=== PATIENT | female | born 1950 | race Caucasian/White ===

== ENCOUNTER 2023-03-10 08:13 | Outpatient (OUT) | payer MEDICARE, MEDICAID, SELFPAY ==
--- NOTE | 2023-03-10 08:37 | PM.CN ---
Consult Note: HPI Data of Consult Patient: known to practice within the last 3 years Consult date: 03/10/23 Requesting Physician: PASQUALE MARSHALL NP Primary Care Provider: Non-Staff Physician, MD Consult Narrative Narrative: Amelie is here for f/u of low back pain. She follows ortho for shoulder and hip injections. No new sensorimotor sx or new bowel or bladder issues. She states she has low back pain without radicular sx. She also has neck pain and continued numbness to bilat last 3 fingers. These are not new sx. No updated radilogy films on file. We discussed getting LS and cervical XR, she is in agreement. She does not have narcan at home. RX given today. She has not had procedures here in the past according to documentation available. She saw chiropractor yesterday and sees neurology this month. cc:: CC: PASQUALE MARSHALL NP Review of Systems ROS Status of ROS 10 or more systems reviewed and unremarkable except as noted in history and below Musculoskeletal Reports: back pain, neck pain and extremity pain Exam Constitutional Documenting provider has reviewed patient's vital signs: yes Common normals: no apparent distress, average body habitus, oriented x3, healthy appearing, alert and well nourished General appearance: cooperative, comfortable and well developed Orientation/consciousness: Yes awake, Yes oriented to person, Yes oriented to place and Yes oriented to time HENGA Common normals: normocephalic, head/scalp atraumatic, external nose normal and moist oral mucous membranes Head and scalp: normal to inspection and normocephalic Neck & C-Spine Common normals: full ROM and supple General: normal visual inspection Cervical spine: cervical ROM normal and pain with cervical ROM Respiratory Common normals: normal respiratory effort and no retractions Effort & inspection: able to speak in complete sentences Back & Pelvis Common normals: straight leg raise negative bilaterally Thoracic spine/upper back: paraspinal muscle spasm Lumbar spine/lower back: ROM limited, pain with ROM, paraspinal muscle tenderness, paraspinal muscle spasm and other soft tissue findings (positive bilat facet loading pain. kyphosis. muscle strength 4/5 bilat LE ) Extremity Common normals: normal to inspection and normal capillary refill Assessment and Plan Assessment and Plan (1) Cervical spondylosis: (2) Lumbar spondylosis: Plan cervical and lumbar spine XR ordered narcan, refill norco
== END 2023-03-10 08:14 ==
PROVIDERS: Visit Provider Nurse Practitioner
DX: M47.812 Spondylosis without myelopathy or radiculopathy, cervical region (principal); M47.816 Spondylosis without myelopathy or radiculopathy, lumbar region
CPT/HCPCS: G0463

== ENCOUNTER 2023-06-09 08:28 | Outpatient (OUT) | payer MEDICARE, MEDICAID, SELFPAY ==
--- NOTE | 2023-06-09 08:57 | PM.CN ---
Consult Note: HPI Data of Consult Patient: known to practice within the last 3 years Requesting Physician: PASQUALE MARSHALL NP Primary Care Provider: Non-Staff Physician, MD Consult Narrative Reason for consult: f/u Narrative: Amelie Saenz a pleasant 73 year old female presents to office for evaluation of chronic neck and back pain. Today patient rating pain 7/10 in neck, back, and hips. Patient currently feels her pain is well controlled by current regimen. Has an upcoming abdominal surgery for an open wound and infection. Would like to start PT after this surgery. cc:: CC: PASQUALE MARSHALL NP Review of Systems ROS Status of ROS 10 or more systems reviewed and unremarkable except as noted in history and below Gastrointestinal Reports: abdominal pain Musculoskeletal Reports: back pain, neck pain, joint pain and limited range of motion Meds Home Medications and Allergies Home Medications Medication Instructions Recorded Confirmed Type ZEMPEP 10,000 units PO TID 03/10/23 03/10/23 History allopurinol 100 mg tablet 100 mg PO DAILY 03/10/23 03/10/23 History ascorbic acid (vitamin C) 500 mg 500 mg PO .QD 03/10/23 03/10/23 History capsule calcitriol 0.5 mcg capsule 0.5 mcg PO BID 03/10/23 03/10/23 History cholecalciferol (vitamin D3) 1,250 50,000 unit PO .5 DAYS/WEEK 03/10/23 03/10/23 History mcg (50,000 unit) capsule ciprofloxacin HCl 500 mg tablet 500 mg PO QDAY 03/10/23 03/10/23 History diphenhydramine HCl 25 mg capsule 25 mg PO TID 03/10/23 03/10/23 History (Benadryl) dupilumab 300 mg/2 mL subcutaneous 300 mg subcut QWEEK 03/10/23 03/10/23 History pen injector (Dupixent) esomeprazole magnesium 40 mg 40 mg PO DAILY 03/10/23 03/10/23 History capsule,delayed release (Nexium) glimepiride 2 mg tablet (Amaryl) 2 mg PO BID 03/10/23 03/10/23 History hydrocodone 7.5 mg-acetaminophen 1 tab PO TID 03/10/23 03/10/23 History 325 mg tablet levothyroxine 175 mcg tablet 175 mcg PO DAILY 03/10/23 03/10/23 History (Synthroid) bitpwy-pxahvwyk-emfybjz 1 cap PO DAILY 03/10/23 03/10/23 History 36,000-114,000-180,000 unit capsule,delay rel (Creon) loperamide 2 mg capsule 2 mg PO QID PRN loose stool 03/10/23 03/10/23 History mecobalamin (vitamin B12) 500 mcg 500 mcg PO DAILY 03/10/23 03/10/23 History chewable tablet memantine 5 mg tablet (Namenda) 5 mg PO DAILY 03/10/23 03/10/23 History multivitamin 1 tab PO DAILY 03/10/23 03/10/23 History potassium bicarbonate-citric acid 25 meq PO BID 03/10/23 03/10/23 History 25 mEq effervescent tablet (Effer-K) potassium chloride 20 mEq 20 meq PO DAILY 03/10/23 03/10/23 History tablet,extended release(part/cryst) sodium bicarbonate 325 mg tablet 325 mg PO DAILY 03/10/23 03/10/23 History sucralfate 1 gram tablet 1 g PO BID 03/10/23 03/10/23 History upadacitinib 15 mg tablet,extended 15 mg PO DAILY 03/10/23 03/10/23 History release 24 hr (Rinvoq) vitamin A 2,400 mcg capsule 40,000 unit PO DAILY 03/10/23 03/10/23 History vitamin B complex (B 1 tab PO DAILY 03/10/23 03/10/23 History Complex-Vitamin B12 tablet) zinc sulfate 50 mg zinc (220 mg) 50 mg PO DAILY 03/10/23 03/10/23 History tablet hydrocodone 7.5 mg-acetaminophen 1 tab PO TID PRN pain #90 tabs 05/09/23 Rx 325 mg tablet Allergies Allergy/AdvReac Type Severity Reaction Status Date / Time bacitracin Allergy Intermediate Verified 03/10/23 09:53 [From Neosporin ([id number])] doxycycline Allergy Intermediate Verified 03/10/23 09:47 neomycin Allergy Intermediate Verified 03/10/23 09:53 [From Neosporin ([id number])] polymyxin B Allergy Intermediate Verified 03/10/23 09:53 [From Neosporin ([id number])] sulfamethoxazole Allergy Intermediate Verified 03/10/23 09:53 [From Bactrim] trimethoprim [From Bactrim] Allergy Intermediate Verified 03/10/23 09:53 donepezil Allergy Unknown Verified 03/10/23 09:52 flurandrenolide Allergy Unknown Verified 03/10/23 09:53 [From Cordran] Iodinated Contrast Media Allergy Unknown Verified 03/10/23 09:52 Penicillins Allergy Unknown Verified 03/10/23 09:52 Sulfa (Sulfonamide Allergy Unknown Verified 03/10/23 09:52 Antibiotics) aspirin Allergy Verified 03/10/23 09:47 grass pollen Allergy itching Verified 03/10/23 09:47 house dust mite Allergy itching Verified 03/10/23 09:47 metformin Allergy Verified 03/10/23 09:47 Exam Constitutional Documenting provider has reviewed patient's vital signs: yes Common normals: no apparent distress, average body habitus, oriented x3, healthy appearing, alert and well nourished General appearance: cooperative HENMT Common normals: normocephalic, hearing grossly normal bilaterally and moist oral mucous membranes Head and scalp: normocephalic Eye Common normals: PERRL Pupil: PERRL Neck & C-Spine Common normals: full ROM General: normal visual inspection Cervical spine: cervical ROM abnormal and pain with cervical ROM Chest Common normals: inspection of chest normal Respiratory Common normals: normal respiratory effort, no retractions and no use of accessory muscles Back & Pelvis Lumbar spine/lower back: ROM limited, pain with ROM and straight leg raise negative bilaterally Sacroiliac joints: SI joint(s) abnormal SI joint details: tender to palpation and pain elicited by compression of iliac crest maneuver Extremity Other: bilateral numbness and tingling to first four digits, negative phalens and finklestein test. intermittent numbness and weakness to bialteral hands. Neuro Common normals: oriented x3, CN's II-XII intact bilaterally, moves all extremities, no focal motor deficits, no sensory deficits noted and deep tendon reflexes 2+ bilaterally Sensorium/orientation: alert Motor exam: no movement abnormalities noted and strength abnormal (4/5 BUE) Psych Common normals: mental status grossly normal, thought process normal, cooperative, affect normal, speech normal and activity/motor behavior normal Speech: normal speech Thought process: normal thought process Results Additional Findings Additional findings: I have checked an [place]AR[place] report on this patient today and there are no aberrancies noted in the prescribing history.?? A drug screen was completed and reviewed within the last year, and if there has not been a drug screen completed we ordered one today to monitor higher risk, state monitored pain medication use. As part of providing excellent, safe, comprehensive care, the following was completed at our patient's visit: 1. A medication reconciliation and review to ensure accurate knowledge of current/active medications, including asking our patients to inform us about any wzkn-qsf-[id number] medications or herbal remedies/nutritional supplements/alternative remedies. 2. A review to specifically ensure our patients have had annual screening for: elevated body mass index (BMI), tobacco use, screening for depression, and screening for unhealthy alcohol use. When screening is concerning, patients are provided with education and the specific recommendation to discuss the concerning health issue and treatment options with their primary care provider. Assessment and Plan Assessment and Plan (1) Chronic prescription opiate use: Assessment and Plan: I have refilled the patient's opioid prescriptions at the above noted dose and schedule.? I feel these medications are improving the patient's quality of life and allow them to tolerate activities of daily living as well as participate in recreational activity.? The patient does not report intolerable side effects. The patient is NOT opioid naive and non-pharmacologic and non-opioid treatment has failed to significantly relieve the patient's pain and improve functionality. The patient has a diagnosis that is related to a somatic or visceral pain etiology. ? ?? I reviewed with the patient the potential risks and side effects with the use of?opioid medications including but not limited to respiratory depression,? sedation, and even . I verified the patient has access to naloxone should?these effects occur. I advised the patient to avoid the use of any other? sedation substances including alcohol, THC, and benzodiazepines while? taking opioid medications due to the risk of compounding side effects and? detrimental outcomes. I reviewed the [employer], pain treatment agreement, urine? drug screen, and opioid start talking forms. The patient was advised to let? their family know they had Naloxone in case they would need to administer? the medication.? ?? A drug screen was completed within the last year, and no aberrancies were noted regarding their use of controlled substances. The patient understands they are subject to the terms and conditions of the pain contract that they have signed. ? ?? I have checked an [place]AR[place] report on this patient today and there are no aberrancies noted in the prescribing history.? (2) Lumbar spondylosis: (3) Cervical spondylosis: (4) Cervical radiculopathy: Assessment and Plan: radiculopathy and numbness/tingling weakness to bilateral hands affecting first four digits. consider cervical YEHUDA in the future, patient not interested at this time (5) Bilateral shoulder pain: Plan cervical and lumbar xrays reviewed patient not interested in injections at this time, consider cervical YEHUDA in the future as discussed with patient today continue follow up with surgeon for ongoing stomach wound would like to start PT after stomach surgery continue follow up care with ortho and hip injections through them continue medications, not interested in additional medications at this time f/u 3 months
== END 2023-06-09 08:29 | disposition home or self-care (01) ==
PROVIDERS: Visit Provider Nurse Practitioner
DX: M54.2 Cervicalgia (principal); M54.9 Dorsalgia, unspecified; G89.29 Other chronic pain; Z79.891 Long term (current) use of opiate analgesic
CPT/HCPCS: G0463

== ENCOUNTER 2023-09-08 08:15 | Outpatient (OUT) | payer MEDICARE, MEDICAID, SELFPAY ==
--- NOTE | 2023-09-08 08:46 | PM.CN ---
Consult Note: HPI Data of Consult Patient: known to practice within the last 3 years Requesting Physician: Xochitl Mcmanus NP Primary Care Provider: Non-Staff Physician, MD Consult Narrative Reason for consult: f/u Narrative: Amelie Saenz a pleasant 73 year old female presents for evaluation and management of chronic pain, today pain worst at low back, right hip, right side of neck, left shoulder. Numbness and tingling to bilateral hands. Recent fall without injury. Today pain 5/10 intermittent sharp pain. Patient has been doing well on tylenol PRN and norco 7.5mg/325mg TID. Patient had a right hip with Dr Whatley in july for right hip pain. Patient is interested in injection therapy for neck pain with radiculopathy. cc:: CC: Xochitl Mcmanus NP Review of Systems ROS Status of ROS 10 or more systems reviewed and unremarkable except as noted in history and below Gastrointestinal Reports: abdominal pain Musculoskeletal Reports: back pain, neck pain, joint pain and limited range of motion Meds Home Medications and Allergies Home Medications Medication Instructions Recorded Confirmed Type ZEMPEP 10,000 units PO TID 03/10/23 03/10/23 History allopurinol 100 mg tablet 100 mg PO DAILY 03/10/23 03/10/23 History ascorbic acid (vitamin C) 500 mg 500 mg PO .QD 03/10/23 03/10/23 History capsule calcitriol 0.5 mcg capsule 0.5 mcg PO BID 03/10/23 03/10/23 History cholecalciferol (vitamin D3) 1,250 50,000 unit PO .5 DAYS/WEEK 03/10/23 03/10/23 History mcg (50,000 unit) capsule diphenhydramine HCl 25 mg capsule 25 mg PO TID 03/10/23 03/10/23 History (Benadryl) dupilumab 300 mg/2 mL subcutaneous 300 mg subcut QWEEK 03/10/23 03/10/23 History pen injector (Dupixent) esomeprazole magnesium 40 mg 40 mg PO DAILY 03/10/23 03/10/23 History capsule,delayed release (Nexium) glimepiride 2 mg tablet (Amaryl) 2 mg PO BID 03/10/23 03/10/23 History hydrocodone 7.5 mg-acetaminophen 1 tab PO TID 03/10/23 06/09/23 History 325 mg tablet levothyroxine 175 mcg tablet 175 mcg PO DAILY 03/10/23 03/10/23 History (Synthroid) dupydw-lzxijiqx-unsgnig 1 cap PO DAILY 03/10/23 03/10/23 History 36,000-114,000-180,000 unit capsule,delay rel (Creon) loperamide 2 mg capsule 2 mg PO QID PRN loose stool 03/10/23 03/10/23 History mecobalamin (vitamin B12) 500 mcg 500 mcg PO DAILY 03/10/23 03/10/23 History chewable tablet memantine 5 mg tablet (Namenda) 5 mg PO DAILY 03/10/23 03/10/23 History multivitamin 1 tab PO DAILY 03/10/23 03/10/23 History potassium bicarbonate-citric acid 25 meq PO BID 03/10/23 03/10/23 History 25 mEq effervescent tablet (Effer-K) potassium chloride 20 mEq 20 meq PO DAILY 03/10/23 03/10/23 History tablet,extended release(part/cryst) sodium bicarbonate 325 mg tablet 325 mg PO DAILY 03/10/23 03/10/23 History sucralfate 1 gram tablet 1 g PO BID 03/10/23 03/10/23 History upadacitinib 15 mg tablet,extended 15 mg PO DAILY 03/10/23 03/10/23 History release 24 hr (Rinvoq) vitamin A 2,400 mcg capsule 40,000 unit PO DAILY 03/10/23 03/10/23 History vitamin B complex (B 1 tab PO DAILY 03/10/23 03/10/23 History Complex-Vitamin B12 tablet) zinc sulfate 50 mg zinc (220 mg) 50 mg PO DAILY 03/10/23 03/10/23 History tablet hydrocodone 7.5 mg-acetaminophen 1 tab PO TID PRN pain #90 tabs 05/09/23 06/09/23 Rx 325 mg tablet hydrocodone 7.5 mg-acetaminophen 1 tab PO TID PRN pain #90 tabs 06/09/23 Rx 325 mg tablet hydrocodone 7.5 mg-acetaminophen 1 tab PO TID PRN pain #90 tabs 07/07/23 Rx 325 mg tablet hydrocodone 7.5 mg-acetaminophen 1 tab PO TID PRN pain #90 tabs 08/05/23 Rx 325 mg tablet Allergies Allergy/AdvReac Type Severity Reaction Status Date / Time bacitracin Allergy Intermediate Verified 03/10/23 09:53 [From Neosporin ([id number])] doxycycline Allergy Intermediate Verified 03/10/23 09:47 neomycin Allergy Intermediate Verified 03/10/23 09:53 [From Neosporin ([id number])] polymyxin B Allergy Intermediate Verified 03/10/23 09:53 [From Neosporin ([id number])] sulfamethoxazole Allergy Intermediate Verified 03/10/23 09:53 [From Bactrim] trimethoprim [From Bactrim] Allergy Intermediate Verified 03/10/23 09:53 donepezil Allergy Unknown Verified 03/10/23 09:52 flurandrenolide Allergy Unknown Verified 03/10/23 09:53 [From Cordran] Iodinated Contrast Media Allergy Unknown Verified 03/10/23 09:52 Penicillins Allergy Unknown Verified 03/10/23 09:52 Sulfa (Sulfonamide Allergy Unknown Verified 03/10/23 09:52 Antibiotics) aspirin Allergy Verified 03/10/23 09:47 grass pollen Allergy itching Verified 03/10/23 09:47 house dust mite Allergy itching Verified 03/10/23 09:47 metformin Allergy Verified 03/10/23 09:47 Exam Constitutional Documenting provider has reviewed patient's vital signs: yes Common normals: no apparent distress, oriented x3, healthy appearing, alert and well nourished General appearance: cooperative [facility] Common normals: normocephalic, hearing grossly normal bilaterally and moist oral mucous membranes Head and scalp: normocephalic Eye Common normals: PERRL Pupil: PERRL Neck & C-Spine Common normals: full ROM General: normal visual inspection Cervical spine: cervical ROM abnormal and pain with cervical ROM Chest Common normals: inspection of chest normal Respiratory Common normals: normal respiratory effort, no retractions and no use of accessory muscles Back & Pelvis Lumbar spine/lower back: ROM limited, pain with ROM and straight leg raise negative bilaterally Sacroiliac joints: SI joint(s) abnormal SI joint details: tender to palpation and pain elicited by compression of iliac crest maneuver Extremity Other: bilateral numbness and tingling to first four digits, negative phalens and finklestein test. intermittent numbness and weakness to bialteral hands. Neuro Common normals: oriented x3, CN's II-XII intact bilaterally, moves all extremities, no focal motor deficits, no sensory deficits noted and deep tendon reflexes 2+ bilaterally Sensorium/orientation: alert Motor exam: strength 5/5 throughout and no movement abnormalities noted Psych Common normals: mental status grossly normal, thought process normal, cooperative, affect normal, speech normal and activity/motor behavior normal Speech: normal speech Thought process: normal thought process Results Additional Findings Additional findings: I have checked an OARRS report on this patient today and there are no aberrancies noted in the prescribing history.?? A drug screen was completed and reviewed within the last year, and if there has not been a drug screen completed we ordered one today to monitor higher risk, state monitored pain medication use. As part of providing excellent, safe, comprehensive care, the following was completed at our patient's visit: 1. A medication reconciliation and review to ensure accurate knowledge of current/active medications, including asking our patients to inform us about any [id number]-txd-[id number] medications or herbal remedies/nutritional supplements/alternative remedies. 2. A review to specifically ensure our patients have had annual screening for: elevated body mass index (BMI), tobacco use, screening for depression, and screening for unhealthy alcohol use. When screening is concerning, patients are provided with education and the specific recommendation to discuss the concerning health issue and treatment options with their primary care provider. Assessment and Plan Assessment and Plan (1) Cervical radiculopathy: Assessment and Plan: The patient has had over 3 months of moderate to severe neck pain with functional impairment and inadequate response to conservative care including NSAIDS (unless there are contraindication such as concurrent blood thinners), multiple oral or topical pain medications, and home exercise program/physical therapy.? Patient has completed >6 weeks of guided home exercise program and/or formal physical therapy program without relief of their symptoms.? I have reviewed the imaging of the cervical spine and no red flags were identified.? The Oswestry Disability Index was completed, and the patient scored a 58%.? The patient noted the following:?? moderate to severe pain, pain with ADLs, pain with sitting, pain with standing, pain interrupting sleep and impacting social life (2) Lumbar spondylosis: (3) Cervical spondylosis: (4) Chronic prescription opiate use: Assessment and Plan: I feel these medications are improving the patient's quality of life and allow them to tolerate activities of daily living as well as participate in recreational activity.? The patient does not report intolerable side effects. The patient is NOT opioid naive and non-pharmacologic and non-opioid treatment has failed to significantly relieve the patient's pain and improve functionality. The patient has a diagnosis that is related to a somatic or visceral pain etiology. ? ?? I reviewed with the patient the potential risks and side effects with the use of? opioid medications including but not limited to respiratory depression,? sedation, and even . I verified the patient has access to naloxone should? these effects occur. I advised the patient to avoid the use of any other? sedation substances including alcohol, THC, and benzodiazepines while? taking opioid medications due to the risk of compounding side effects and? detrimental outcomes. I reviewed the [employer], pain treatment agreement, urine? drug screen, and opioid start talking forms. The patient was advised to let? their family know they had Naloxone in case they would need to administer? the medication.? ?? A drug screen was completed within the last year, and no aberrancies were noted regarding their use of controlled substances. The patient understands they are subject to the terms and conditions of the pain contract that they have signed. ? ?? I have checked an [place]ARRS report on this patient today and there are no aberrancies noted in the prescribing history.? (5) Bilateral shoulder pain: (6) Chronic pain syndrome: Plan cervical MRI without contrast for cervical radiculopathy to evaluate injection therapy options continue current medications, tolerating well without side effect narcan previously discussed and ordered continue child caregiver private home PRN continue f/u with Dr whatley for right hip pain and injections f/u after MRI
== END 2023-09-08 08:16 | disposition home or self-care (01) ==
PROVIDERS: Visit Provider Nurse Practitioner
DX: M54.12 Radiculopathy, cervical region (principal); M47.816 Spondylosis without myelopathy or radiculopathy, lumbar region; M47.812 Spondylosis without myelopathy or radiculopathy, cervical region; Z79.891 Long term (current) use of opiate analgesic
CPT/HCPCS: G0463

== ENCOUNTER 2023-10-06 09:19 | Outpatient (OUT) | payer MEDICARE, MEDICAID, SELFPAY ==
--- NOTE | 2023-10-06 09:54 | P.CN_ITS ---
Consult Note: HPI Data of Consult Patient: known to practice within the last 3 years Requesting Physician: Xochitl Mcmanus NP Primary Care Provider: Non-Staff Physician, MD Consult Narrative Reason for consult: f/u Narrative: Amelie Saenz a pleasant 73 year old female presents for evaluation and management of chronic pain, neck pain 3/10 ache with numbness in bilaateral hands worst on the right. Patient has been doing well on tylenol PRN and norco 7.5mg/325mg TID. Patient here today to review cervical MRI and discuss injection therapy cc:: CC: Xochitl Mcmanus NP Review of Systems ROS Status of ROS 10 or more systems reviewed and unremark able except as noted in history and below Musculoskeletal Reports: neck pain Meds Home Medications and Allergies Home Medications Medication Instructions Recorded Confirmed Type ZEMPEP 10,000 units PO TID 03/10/23 03/10/23 History allopurinol 100 mg tablet 100 mg PO DAILY 03/10/23 03/10/23 History ascorbic acid (vitamin C) 500 mg 500 mg PO .QD 03/10/23 03/10/23 History capsule calcitriol 0.5 mcg capsule 0.5 mcg PO BID 03/10/23 03/10/23 History cholecalciferol (vitamin D3) 1,250 50,000 unit PO .5 DAYS/WEEK 03/10/23 03/10/23 History mcg (50,000 unit) capsule diphenhydramine HCl 25 mg capsule 25 mg PO TID 03/10/23 03/10/23 History (Benadryl) dupilumab 300 mg/2 mL subcutaneous 300 mg subcut QWEEK 03/10/23 03/10/23 History pen injector (Dupixent) esomeprazole magnesium 40 mg 40 mg PO DAILY 03/10/23 03/10/23 History capsule,delayed release (Nexium) glimepiride 2 mg tablet (Amaryl) 2 mg PO BID 03/10/23 03/10/23 History hydrocodone 7.5 mg-acetaminophen 1 tab PO TID 03/10/23 06/09/23 History 325 mg tablet levothyroxine 175 mcg tablet 175 mcg PO DAILY 03/10/23 03/10/23 History (Synthroid) [id number] 1 cap PO DAILY 03/10/23 03/10/23 History 36,000-114,000-180,000 unit capsule,delay rel (Creon) loperamide 2 mg capsule 2 mg PO QID PRN loose stool 03/10/23 03/10/23 History mecobalamin (vitamin B12) 500 mcg 500 mcg PO DAILY 03/10/23 03/10/23 History chewable tablet memantine 5 mg tablet (Namenda) 5 mg PO DAILY 03/10/23 03/10/23 History multivitamin 1 tab PO DAILY 03/10/23 03/10/23 History potassium bicarbonate-citric acid 25 meq PO BID 03/10/23 03/10/23 History 25 mEq effervescent tablet (Effer-K) potassium chloride 20 mEq 20 meq PO DAILY 03/10/23 03/10/23 History tablet,extended release(part/cryst) sodium bicarbonate 325 mg tablet 325 mg PO DAILY 03/10/23 03/10/23 History sucralfate 1 gram tablet 1 g PO BID 03/10/23 03/10/23 History upadacitinib 15 mg tablet,extended 15 mg PO DAILY 03/10/23 03/10/23 History release 24 hr (Rinvoq) vitamin A 2,400 mcg capsule 40,000 unit PO DAILY 03/10/23 03/10/23 History vitamin B complex (B 1 tab PO DAILY 03/10/23 03/10/23 History Complex-Vitamin B12 tablet) zinc sulfate 50 mg zinc (220 mg) 50 mg PO DAILY 03/10/23 03/10/23 History tablet hydrocodone 7.5 mg-acetaminophen 1 tab PO TID PRN pain #90 tabs 05/09/23 06/09/23 Rx 325 mg tablet hydrocodone 7.5 mg-acetaminophen 1 tab PO TID PRN pain #90 tabs 06/09/23 Rx 325 mg tablet hydrocodone 7.5 mg-acetaminophen 1 tab PO TID PRN pain #90 tabs 07/07/23 Rx 325 mg tablet hydrocodone 7.5 mg-acetaminophen 1 tab PO TID PRN pain #90 tabs 08/05/23 Rx 325 mg tablet hydrocodone 7.5 mg-acetaminophen 1 tab PO TID PRN pain #90 tabs 09/08/23 Rx 325 mg tablet Allergies Allergy/AdvReac Type Severity Reaction Status Date / Time bacitracin Allergy Intermediate Verified 03/10/23 09:53 [From Neosporin ([id number])] doxycycline Allergy Intermediate Verified 03/10/23 09:47 neomycin Allergy Intermediate Verified 03/10/23 09:53 [From Neosporin ([id number])] polymyxin B Allergy Intermediate Verified 03/10/23 09:53 [From Neosporin ([id number])] sulfamethoxazole Allergy Intermediate Verified 03/10/23 09:53 [From Bactrim] trimethoprim [From Bactrim] Allergy Intermediate Verified 03/10/23 09:53 donepezil Allergy Unknown Verified 03/10/23 09:52 flurandrenolide Allergy Unknown Verified 03/10/23 09:53 [From Cordran] Iodinated Contrast Media Allergy Unknown Verified 03/10/23 09:52 Penicillins Allergy Unknown Verified 03/10/23 09:52 Sulfa (Sulfonamide Allergy Unknown Verified 03/10/23 09:52 Antibiotics) aspirin Allergy Verified 03/10/23 09:47 grass pollen Allergy itching Verified 03/10/23 09:47 house dust mite Allergy itching Verified 03/10/23 09:47 metformin Allergy Verified 03/10/23 09:47 Exam Constitutional Documenting provider has reviewed patient's vital signs: yes Common normals: no apparent distress, oriented x3, healthy appearing, alert and well nourished General appearance: cooperative HENMT Common normals: normocephalic, hearing grossly normal bilaterally and moist oral mucous membranes Head and scalp: normocephalic Eye Common normals: PERRL Pupil: PERRL Neck & C-Spine Common normals: full ROM General: normal visual inspection Cervical spine: cervical ROM abnormal and pain with cervical ROM Other: decreased sensation in RUE following C4,5,6,7 dermatomal pattern. strength 4/5 in RUE 5/5 in LUE Chest Common normals: inspection of chest normal Respiratory Common normals: normal respiratory effort, no retractions and no use of accessory muscles Back & Pelvis Lumbar spine/lower back: ROM limited, pain with ROM and straight leg raise negative bilaterally Sacroiliac joints: SI joint(s) abnormal SI joint details: tender to palpation and pain elicited by compression of iliac crest maneuver Extremity Common normals: normal to inspection and full ROM Other: bilateral numbness and tingling to first four digits, negative phalens and finklestein test. intermittent numbness and weakness to bialteral hands. Neuro Common normals: oriented x3, CN's II-XII intact bilaterally, moves all extremities, no focal motor deficits, no sensory deficits noted and deep tendon reflexes 2+ bilaterally Sensorium/orientation: alert Motor exam: no movement abnormalities noted and strength abnormal Psych Common normals: mental status grossly normal, thought process normal, cooperative, affect normal, speech normal and activity/motor behavior normal Speech: normal speech Thought process: normal thought process Assessment and Plan Assessment and Plan (1) Cervical radiculopathy: (2) Cervical spondylosis: (3) Cervical spinal stenosis: (4) Chronic prescription opiate use: (5) Chronic pain syndrome: Plan MRI findings reviewed with patient, patient not interested in surgical consult at this time. She is concerned with her age and driving to and from procedures/surgery. right C4-5 C5-6 TFESI under fluoroscopy for cervical stenosis with radiculopathy, pain and numbness tingling weakness in right arm worsening continue current medications, finding benefit from norco 7.5mg TID PRN consider cervical facet blocks working towards RFA in the future f/u 1-2 weeks after TFESI
== END 2023-10-06 09:20 | disposition home or self-care (01) ==
PROVIDERS: Visit Provider Nurse Practitioner
DX: M54.12 Radiculopathy, cervical region (principal); M47.812 Spondylosis without myelopathy or radiculopathy, cervical region; M48.02 Spinal stenosis, cervical region; Z79.891 Long term (current) use of opiate analgesic; G89.4 Chronic pain syndrome
CPT/HCPCS: G0463

== ENCOUNTER 2024-01-12 08:13 | Outpatient (OUT) | payer MEDICARE, MEDICAID, SELFPAY ==
--- NOTE | 2024-01-12 08:25 | P.CN_ITS ---
Consult Note: HPI Data of Consult Patient: known to practice within the last 3 years Requesting Physician: Xochitl Mcmanus NP Primary Care Provider: Non-Staff Physician, MD Consult Narrative Reason for consult: f/u Narrative: Amelie Saenz a pleasant 73 year old female presents for evaluation and management of chronic pain, neck pain, bilateral shoulder, knees, low back 3/10 ache with numbness in bilateral hands worst on the right. Patient has been doing well on tylenol PRN and norco 7.5mg/325mg TID. Patient following with Dr Iván DICKSON for evaluation and management, but not surgical intervention. cc:: CC: Xochitl Mcmanus NP Review of Systems ROS Status of ROS 10 or more systems reviewed and unremark able except as noted in history and below Musculoskeletal Reports: back pain, neck pain and joint pain Meds Home Medications and Allergies Home Medications ?Medication ?Instructions ?Recorded ?Confirmed ?Type ZEMPEP 10,000 units PO TID 03/10/23 03/10/23 History allopurinol 100 mg tablet 100 mg PO DAILY 03/10/23 03/10/23 History ascorbic acid (vitamin C) 500 mg 500 mg PO .QD 03/10/23 03/10/23 History capsule calcitriol 0.5 mcg capsule 0.5 mcg PO BID 03/10/23 03/10/23 History cholecalciferol (vitamin D3) 1,250 50,000 unit PO .5 DAYS/WEEK 03/10/23 03/10/23 History mcg (50,000 unit) capsule diphenhydramine HCl 25 mg capsule 25 mg PO TID 03/10/23 03/10/23 History (Benadryl) dupilumab 300 mg/2 mL subcutaneous 300 mg subcut QWEEK 03/10/23 03/10/23 History pen injector (Dupixent) esomeprazole magnesium 40 mg 40 mg PO DAILY 03/10/23 03/10/23 History capsule,delayed release (Nexium) glimepiride 2 mg tablet (Amaryl) 2 mg PO BID 03/10/23 03/10/23 History hydrocodone 7.5 mg-acetaminophen 1 tab PO TID 03/10/23 06/09/23 History 325 mg tablet levothyroxine 175 mcg tablet 175 mcg PO DAILY 03/10/23 03/10/23 History (Synthroid) [id number]-ukonjwkn-bwarsme 1 cap PO DAILY 03/10/23 03/10/23 History 36,000-114,000-180,000 unit capsule,delay rel (Creon) loperamide 2 mg capsule 2 mg PO QID PRN loose stool 03/10/23 03/10/23 History mecobalamin (vitamin B12) 500 mcg 500 mcg PO DAILY 03/10/23 03/10/23 History chewable tablet memantine 5 mg tablet (Namenda) 5 mg PO DAILY 03/10/23 03/10/23 History multivitamin 1 tab PO DAILY 03/10/23 03/10/23 History potassium bicarbonate-citric acid 25 meq PO BID 03/10/23 03/10/23 History 25 mEq effervescent tablet (Effer-K) potassium chloride 20 mEq 20 meq PO DAILY 03/10/23 03/10/23 History tablet,extended release(part/cryst) sodium bicarbonate 325 mg tablet 325 mg PO DAILY 03/10/23 03/10/23 History sucralfate 1 gram tablet 1 g PO BID 03/10/23 03/10/23 History upadacitinib 15 mg tablet,extended 15 mg PO DAILY 03/10/23 03/10/23 History release 24 hr (Rinvoq) vitamin A 2,400 mcg capsule 40,000 unit PO DAILY 03/10/23 03/10/23 History vitamin B complex (B 1 tab PO DAILY 03/10/23 03/10/23 History Complex-Vitamin B12 tablet) zinc sulfate 50 mg zinc (220 mg) 50 mg PO DAILY 03/10/23 03/10/23 History tablet hydrocodone 7.5 mg-acetaminophen 1 tab PO TID PRN pain #90 tabs 05/09/23 06/09/23 Rx 325 mg tablet hydrocodone 7.5 mg-acetaminophen 1 tab PO TID PRN pain #90 tabs 06/09/23 Rx 325 mg tablet hydrocodone 7.5 mg-acetaminophen 1 tab PO TID PRN pain #90 tabs 07/07/23 Rx 325 mg tablet hydrocodone 7.5 mg-acetaminophen 1 tab PO TID PRN pain #90 tabs 08/05/23 Rx 325 mg tablet hydrocodone 7.5 mg-acetaminophen 1 tab PO TID PRN pain #90 tabs 09/08/23 Rx 325 mg tablet hydrocodone 7.5 mg-acetaminophen 1 tab PO TID PRN pain #90 tabs 10/06/23 Rx 325 mg tablet hydrocodone 7.5 mg-acetaminophen 1 tab PO TID PRN pain #90 tabs 10/31/23 Rx 325 mg tablet hydrocodone 7.5 mg-acetaminophen 1 tab PO TID PRN pain #90 tabs 12/05/23 Rx 325 mg tablet hydrocodone 7.5 mg-acetaminophen 1 tab PO TID PRN pain #90 tabs 01/02/24 Rx 325 mg tablet Allergies Allergy/AdvReac Type Severity Reaction Status Date / Time bacitracin Allergy Intermediate Verified 03/10/23 09:53 [From Neosporin ([id number])] doxycycline Allergy Intermediate Verified 03/10/23 09:47 neomycin Allergy Intermediate Verified 03/10/23 09:53 [From Neosporin ([id number])] polymyxin B Allergy Intermediate Verified 03/10/23 09:53 [From Neosporin ([id number])] sulfamethoxazole Allergy Intermediate Verified 03/10/23 09:53 [From Bactrim] trimethoprim [From Bactrim] Allergy Intermediate Verified 03/10/23 09:53 donepezil Allergy Unknown Verified 03/10/23 09:52 flurandrenolide Allergy Unknown Verified 03/10/23 09:53 [From Cordran] Iodinated Contrast Media Allergy Unknown Verified 03/10/23 09:52 Penicillins Allergy Unknown Verified 03/10/23 09:52 Sulfa (Sulfonamide Allergy Unknown Verified 03/10/23 09:52 Antibiotics) aspirin Allergy Verified 03/10/23 09:47 grass pollen Allergy itching Verified 03/10/23 09:47 house dust mite Allergy itching Verified 03/10/23 09:47 metformin Allergy Verified 03/10/23 09:47 Exam Constitutional Documenting provider has reviewed patient's vital signs: yes Common normals: no apparent distress, oriented x3, healthy appearing, alert and well nourished General appearance: cooperative HENMT Common normals: normocephalic, hearing grossly normal bilaterally and moist oral mucous membranes Head and scalp: normocephalic Eye Common normals: PERRL Pupil: PERRL Neck & C-Spine Common normals: full ROM General: normal visual inspection Cervical spine: cervical ROM abnormal and pain with cervical ROM Other: decreased sensation in RUE following C4,5,6,7 dermatomal pattern. strength 4/5 in RUE 5/5 in LUE Chest Common normals: inspection of chest normal Respiratory Common normals: normal respiratory effort, no retractions and no use of accessory muscles Back & Pelvis Lumbar spine/lower back: ROM limited, pain with ROM and straight leg raise negative bilaterally Sacroiliac joints: SI joint(s) abnormal SI joint details: tender to palpation and pain elicited by compression of iliac crest maneuver Extremity Common normals: normal to inspection and full ROM Right upper extremity: shoulder joint Left upper extremity: shoulder joint Other: bilateral numbness and tingling to first four digits, negative phalens and finklestein test. intermittent numbness and weakness to bialteral hands. pain and limited ROM in bilateral shoulders, positive empty can test, posterior lift off Neuro Common normals: oriented x3, CN's II-XII intact bilaterally, moves all extremities, no focal motor deficits, no sensory deficits noted and deep tendon reflexes 2+ bilaterally Sensorium/orientation: alert Motor exam: strength 5/5 throughout and no movement abnormalities noted Psych Common normals: mental status grossly normal, thought process normal, cooperative, affect normal, speech normal and activity/motor behavior normal Speech: normal speech Thought process: normal thought process Results Additional Findings Additional findings: If on a controlled substance or opioids, I have checked an [place] report on this patient and there are no aberrancies noted in the prescribing history.??If on a controlled substance or opioid a drug screen was completed and reviewed within the last year, and if there has not been a drug screen completed we ordered one today to monitor higher risk, state monitored pain medication use. As part of providing excellent, safe, comprehensive care, the following was completed at our patient's visit: 1. A medication reconciliation and review to ensure accurate knowledge of current/active medications, including asking our patients to inform us about any [id number] medications or herbal remedies/nutritional supplements/alternative remedies. 2. A review to specifically ensure our patients have had annual screening for screening for depression, screening for tobacco use, and screening for unhealthy alcohol use. For concerning screenings had a discussion with the patient, provided patient education, and recommended follow-up with primary care provider when appropriate. If patient noted with a risk of falling, they received education on strength, gait, and balance training to prevent future risk of falling. Assessment and Plan Assessment and Plan (1) Cervical radiculopathy: (2) Cervical spondylosis: (3) Cervical spinal stenosis: (4) Chronic prescription opiate use: Assessment and Plan: I feel these medications are improving the patient's quality of life and allow them to tolerate activities of daily living as well as participate in recreational activity.? The patient does not report intolerable side effects. The patient is NOT opioid naive and non-pharmacologic and non-opioid treatment has failed to significantly relieve the patient's pain and improve functionality. The patient has a diagnosis that is related to a somatic or visceral pain etiology. ? ?? I reviewed with the patient the potential risks and side effects with the use of? opioid medications including but not limited to respiratory depression,? sedation, and even . I verified the patient has access to naloxone should? these effects occur. I advised the patient to avoid the use of any other? sedation substances including alcohol, THC, and benzodiazepines while? taking opioid medications due to the risk of compounding side effects and? detrimental outcomes. I reviewed the [employer], pain treatment agreement, urine? drug screen, and opioid start talking forms. The patient was advised to let? their family know they had Naloxone in case they would need to administer? the medication.? ?? A drug screen was completed within the last year, and no aberrancies were noted regarding their use of controlled substances. The patient understands they are subject to the terms and conditions of the pain contract that they have signed. ? ?? I have checked an [place] report on this patient today and there are no aberrancies noted in the prescribing history.? (5) Chronic pain syndrome: (6) Lumbar spondylosis: (7) Bilateral shoulder pain: Plan MRI findings reviewed with patient at last appointment, patient not interested in surgical consult at this time. She is concerned with her age and driving to and from procedures/surgery. however she is following with [facility] at this time without intention of surgery patient cancelled previously ordered cervical TFESIs, declining at this time continue current medications, finding benefit from norco 7.5mg TID PRN moderate to severe pain f/u 3 months for medication management
== END 2024-01-12 08:14 | disposition home or self-care (01) ==
LOC: PM 08:14
PROVIDERS: Visit Provider Nurse Practitioner
DX: M54.16 Radiculopathy, lumbar region (principal); M47.812 Spondylosis without myelopathy or radiculopathy, cervical region; M48.02 Spinal stenosis, cervical region; Z79.891 Long term (current) use of opiate analgesic; G89.4 Chronic pain syndrome; M47.816 Spondylosis without myelopathy or radiculopathy, lumbar region; M25.511 Pain in right shoulder; M25.512 Pain in left shoulder
CPT/HCPCS: G0463

== ENCOUNTER 2024-04-12 08:21 | Outpatient (OUT) | payer MEDICARE, MEDICAID, SELFPAY ==
--- NOTE | 2024-04-12 08:35 | P.CN_ITS ---
Consult Note: HPI Data of Consult Patient: known to practice within the last 3 years Requesting Physician: Xochitl Mcmanus NP Primary Care Provider: Non-Staff Physician, MD Consult Narrative Reason for consult: f/u Narrative: Amelie Saenz a pleasant 73 year old female presents for evaluation and management of chronic pain, neck pain, bilateral shoulder, knees, low back 5- 6/10 ache. Patient has been doing well on tylenol PRN and norco 7.5mg/325mg TID. Patient following with Dr Iván DICKSON for evaluation and management, but not surgical intervention at this time due to osteoporosis. Following with ID for concerns of infection, and nephrology/urology for kidney stones. cc:: CC: Xochitl Mcmanus NP Review of Systems ROS Status of ROS 10 or more systems reviewed and unremark able except as noted in history and below Musculoskeletal Reports: back pain, neck pain and joint pain Meds Home Medications and Allergies Home Medications ?Medication ?Instructions ?Recorded ?Confirmed ?Type ZEMPEP 10,000 units PO TID 03/10/23 03/10/23 History allopurinol 100 mg tablet 100 mg PO DAILY 03/10/23 03/10/23 History ascorbic acid (vitamin C) 500 mg 500 mg PO .QD 03/10/23 03/10/23 History capsule calcitriol 0.5 mcg capsule 0.5 mcg PO BID 03/10/23 03/10/23 History cholecalciferol (vitamin D3) 1,250 50,000 unit PO .5 DAYS/WEEK 03/10/23 03/10/23 History mcg (50,000 unit) capsule diphenhydramine HCl 25 mg capsule 25 mg PO TID 03/10/23 03/10/23 History (Benadryl) dupilumab 300 mg/2 mL subcutaneous 300 mg subcut QWEEK 03/10/23 03/10/23 History pen injector (Dupixent) esomeprazole magnesium 40 mg 40 mg PO DAILY 03/10/23 03/10/23 History capsule,delayed release (Nexium) glimepiride 2 mg tablet (Amaryl) 2 mg PO BID 03/10/23 03/10/23 History levothyroxine 175 mcg tablet 175 mcg PO DAILY 03/10/23 03/10/23 History (Synthroid) karris-lcdkxhuf-lcgarak 1 cap PO DAILY 03/10/23 03/10/23 History 36,000-114,000-180,000 unit capsule,delay rel (Creon) loperamide 2 mg capsule 2 mg PO QID PRN loose stool 03/10/23 03/10/23 History mecobalamin (vitamin B12) 500 mcg 500 mcg PO DAILY 03/10/23 03/10/23 History chewable tablet memantine 5 mg tablet (Namenda) 5 mg PO DAILY 03/10/23 03/10/23 History multivitamin 1 tab PO DAILY 03/10/23 03/10/23 History potassium bicarbonate-citric acid 25 meq PO BID 03/10/23 03/10/23 History 25 mEq effervescent tablet (Effer-K) potassium chloride 20 mEq 20 meq PO DAILY 03/10/23 03/10/23 History tablet,extended release(part/cryst) sodium bicarbonate 325 mg tablet 325 mg PO DAILY 03/10/23 03/10/23 History sucralfate 1 gram tablet 1 g PO BID 03/10/23 03/10/23 History upadacitinib 15 mg tablet,extended 15 mg PO DAILY 03/10/23 03/10/23 History release 24 hr (Rinvoq) vitamin A 2,400 mcg capsule 40,000 unit PO DAILY 03/10/23 03/10/23 History vitamin B complex (B 1 tab PO DAILY 03/10/23 03/10/23 History Complex-Vitamin B12 tablet) zinc sulfate 50 mg zinc (220 mg) 50 mg PO DAILY 03/10/23 03/10/23 History tablet hydrocodone 7.5 mg-acetaminophen 1 tab PO TID PRN pain #90 tabs 12/05/23 Rx 325 mg tablet hydrocodone 7.5 mg-acetaminophen 1 tab PO TID PRN pain #90 tabs 02/02/24 Rx 325 mg tablet hydrocodone 7.5 mg-acetaminophen 1 tab PO TID PRN pain #90 tabs 02/29/24 Rx 325 mg tablet hydrocodone 7.5 mg-acetaminophen 1 tab PO TID PRN pain #90 tabs 04/02/24 Rx 325 mg tablet Allergies Allergy/AdvReac Type Severity Reaction Status Date / Time bacitracin Allergy Intermediate Verified 03/10/23 09:53 [From Neosporin ([id number])] doxycycline Allergy Intermediate Verified 03/10/23 09:47 neomycin Allergy Intermediate Verified 03/10/23 09:53 [From Neosporin ([id number])] polymyxin B Allergy Intermediate Verified 03/10/23 09:53 [From Neosporin ([id number])] sulfamethoxazole Allergy Intermediate Verified 03/10/23 09:53 [From Bactrim] trimethoprim [From Bactrim] Allergy Intermediate Verified 03/10/23 09:53 donepezil Allergy Unknown Verified 03/10/23 09:52 flurandrenolide Allergy Unknown Verified 03/10/23 09:53 [From Cordran] Iodinated Contrast Media Allergy Unknown Verified 03/10/23 09:52 Penicillins Allergy Unknown Verified 03/10/23 09:52 Sulfa (Sulfonamide Allergy Unknown Verified 03/10/23 09:52 Antibiotics) aspirin Allergy Verified 03/10/23 09:47 grass pollen Allergy itching Verified 03/10/23 09:47 house dust mite Allergy itching Verified 03/10/23 09:47 metformin Allergy Verified 03/10/23 09:47 Exam Constitutional Documenting provider has reviewed patient's vital signs: yes Common normals: no apparent distress, oriented x3, healthy appearing, alert and well nourished General appearance: cooperative [facility] Common normals: normocephalic, hearing grossly normal bilaterally and moist oral mucous membranes Head and scalp: normocephalic Eye Common normals: PERRL Pupil: PERRL Neck & C-Spine Common normals: full ROM General: normal visual inspection Cervical spine: cervical ROM abnormal and pain with cervical ROM Other: decreased sensation in RUE following C4,5,6,7 dermatomal pattern. strength 4/5 in RUE 5/5 in LUE Chest Common normals: inspection of chest normal Respiratory Common normals: normal respiratory effort, no retractions and no use of accessory muscles Back & Pelvis Lumbar spine/lower back: ROM limited, pain with ROM and straight leg raise negative bilaterally Sacroiliac joints: SI joint(s) abnormal SI joint details: tender to palpation and pain elicited by compression of iliac crest maneuver Extremity Common normals: normal to inspection and full ROM Right upper extremity: shoulder joint Left upper extremity: shoulder joint Other: bilateral numbness and tingling to first four digits, negative phalens and finklestein test. intermittent numbness and weakness to bialteral hands. pain and limited ROM in bilateral shoulders, positive empty can test, posterior lift off Neuro Common normals: oriented x3, CN's II-XII intact bilaterally, moves all extremities, no focal motor deficits, no sensory deficits noted and deep tendon reflexes 2+ bilaterally Sensorium/orientation: alert Motor exam: strength 5/5 throughout and no movement abnormalities noted Psych Common normals: mental status grossly normal, thought process normal, cooperative, affect normal, speech normal and activity/motor behavior normal Speech: normal speech Thought process: normal thought process Results Additional Findings Additional findings: If on a controlled substance or opioids, I have checked an [place] report on this patient and there are no aberrancies noted in the prescribing history.??If on a controlled substance or opioid a drug screen was completed and reviewed within the last year, and if there has not been a drug screen completed we ordered one today to monitor higher risk, state monitored pain medication use. As part of providing excellent, safe, comprehensive care, the following was completed at our patient's visit: 1. A medication reconciliation and review to ensure accurate knowledge of current/active medications, including asking our patients to inform us about any [id number] medications or herbal remedies/nutritional supplements/alternative remedies. 2. A review to specifically ensure our patients have had annual screening for screening for depression, screening for tobacco use, and screening for unhealthy alcohol use. For concerning screenings had a discussion with the patient, provided patient education, and recommended follow-up with primary care provider when appropriate. If patient noted with a risk of falling, they received education on strength, gait, and balance training to prevent future risk of falling. Assessment and Plan Assessment and Plan (1) Cervical radiculopathy: (2) Cervical spondylosis: (3) Cervical spinal stenosis: (4) Chronic prescription opiate use: Assessment and Plan: I feel these medications are improving the patient's quality of life and allow them to tolerate activities of daily living as well as participate in recreational activity.? The patient does not report intolerable side effects. The patient is NOT opioid naive and non-pharmacologic and non-opioid treatment has failed to significantly relieve the patient's pain and improve functionality. The patient has a diagnosis that is related to a somatic or visceral pain etiology. ? ?? I reviewed with the patient the potential risks and side effects with the use of? opioid medications including but not limited to respiratory depression,? sedation, and even . I verified the patient has access to naloxone should? these effects occur. I advised the patient to avoid the use of any other? sedation substances including alcohol, THC, and benzodiazepines while? taking opioid medications due to the risk of compounding side effects and? detrimental outcomes. I reviewed the [employer] SERVICES COORDINATOR, pain treatment agreement, urine? drug screen, and opioid start talking forms. The patient was advised to let? their family know they had Naloxone in case they would need to administer? the medication.? ?? A drug screen was completed within the last year, and no aberrancies were noted regarding their use of controlled substances. The patient understands they are subject to the terms and conditions of the pain contract that they have signed. ? ?? I have checked an [place] report on this patient today and there are no aberrancies noted in the prescribing history.? (5) Chronic pain syndrome: (6) Lumbar spondylosis: (7) Bilateral shoulder pain: Plan continue f/u with NS, ID, Nephrology, urology update UDS today continue current medications, finding benefit from norco 7.5mg TID PRN moderate to severe pain f/u 3 months for medication management
== END 2024-04-12 08:22 | disposition home or self-care (01) ==
LOC: PM 08:21
PROVIDERS: Visit Provider Nurse Practitioner
DX: M47.22 Other spondylosis with radiculopathy, cervical region (principal); M48.02 Spinal stenosis, cervical region; Z79.899 Other long term (current) drug therapy
CPT/HCPCS: G0463

== ENCOUNTER 2024-07-26 09:13 | Outpatient (OUT) | payer MEDICARE, MEDICAID, SELFPAY ==
--- NOTE | 2024-07-26 09:46 | P.CN_ITS ---
Consult Note: HPI Data of Consult Patient: known to practice within the last 3 years Requesting Physician: Xochitl Mcmanus NP Primary Care Provider: Non-Staff Physician, MD Consult Narrative Reason for consult: f/u Narrative: Amelie Saenz a pleasant 73 year old female presents for evaluation and management of chronic pain, neck pain, bilateral shoulder, knees, low back 4/10 ache. Patient has been doing well on tylenol PRN and norco 7.5mg/325mg TID PRN without side effects. Patient previously following with Dr Iván DICKSON for evaluation and management, but no surgical intervention at this time due to osteoporosis. Following with ID/hematology, and nephrology/urology for kidney stones. recently evaluated by Dr Up who gives her shoulder and hip injections. cc:: CC: Xochitl Mcmanus NP Review of Systems ROS Status of ROS 10 or more systems reviewed and unremark able except as noted in history and below Musculoskeletal Reports: back pain, neck pain, extremity pain and joint pain Meds Home Medications and Allergies Home Medications ?Medication ?Instructions ?Recorded ?Confirmed ?Type ZEMPEP 10,000 units PO TID 03/10/23 03/10/23 History allopurinol 100 mg tablet 100 mg PO DAILY 03/10/23 03/10/23 History ascorbic acid (vitamin C) 500 mg 500 mg PO .QD 03/10/23 03/10/23 History capsule calcitriol 0.5 mcg capsule 0.5 mcg PO BID 03/10/23 03/10/23 History cholecalciferol (vitamin D3) 1,250 50,000 unit PO .5 DAYS/WEEK 03/10/23 03/10/23 History mcg (50,000 unit) capsule diphenhydramine HCl 25 mg capsule 25 mg PO TID 03/10/23 03/10/23 History (Benadryl) dupilumab 300 mg/2 mL subcutaneous 300 mg subcut QWEEK 03/10/23 03/10/23 History pen injector (Dupixent) esomeprazole magnesium 40 mg 40 mg PO DAILY 03/10/23 03/10/23 History capsule,delayed release (Nexium) glimepiride 2 mg tablet (Amaryl) 2 mg PO BID 03/10/23 03/10/23 History levothyroxine 175 mcg tablet 175 mcg PO DAILY 03/10/23 03/10/23 History (Synthroid) ccgwgm-wexnuipm-zquycgn 1 cap PO DAILY 03/10/23 03/10/23 History 36,000-114,000-180,000 unit capsule,delay rel (Creon) loperamide 2 mg capsule 2 mg PO QID PRN loose stool 03/10/23 03/10/23 History mecobalamin (vitamin B12) 500 mcg 500 mcg PO DAILY 03/10/23 03/10/23 History chewable tablet memantine 5 mg tablet (Namenda) 5 mg PO DAILY 03/10/23 03/10/23 History multivitamin 1 tab PO DAILY 03/10/23 03/10/23 History potassium bicarbonate-citric acid 25 meq PO BID 03/10/23 03/10/23 History 25 mEq effervescent tablet (Effer-K) potassium chloride 20 mEq 20 meq PO DAILY 03/10/23 03/10/23 History tablet,extended release(part/cryst) sodium bicarbonate 325 mg tablet 325 mg PO DAILY 03/10/23 03/10/23 History sucralfate 1 gram tablet 1 g PO BID 03/10/23 03/10/23 History upadacitinib 15 mg tablet,extended 15 mg PO DAILY 03/10/23 03/10/23 History release 24 hr (Rinvoq) vitamin A 2,400 mcg capsule 40,000 unit PO DAILY 03/10/23 03/10/23 History vitamin B complex (B 1 tab PO DAILY 03/10/23 03/10/23 History Complex-Vitamin B12 tablet) zinc sulfate 50 mg zinc (220 mg) 50 mg PO DAILY 03/10/23 03/10/23 History tablet hydrocodone 7.5 mg-acetaminophen 1 tab PO TID PRN pain #90 tabs 12/05/23 Rx 325 mg tablet hydrocodone 7.5 mg-acetaminophen 1 tab PO TID PRN pain #90 tabs 02/02/24 Rx 325 mg tablet hydrocodone 7.5 mg-acetaminophen 1 tab PO TID PRN pain #90 tabs 02/29/24 Rx 325 mg tablet hydrocodone 7.5 mg-acetaminophen 1 tab PO TID PRN pain #90 tabs 04/02/24 Rx 325 mg tablet hydrocodone 7.5 mg-acetaminophen 1 tab PO TID PRN pain #90 tabs 05/09/24 Rx 325 mg tablet hydrocodone 7.5 mg-acetaminophen 1 tab PO TID PRN pain #90 tabs 05/29/24 Rx 325 mg tablet hydrocodone 7.5 mg-acetaminophen 1 tab PO TID PRN pain #90 tabs 07/03/24 Rx 325 mg tablet Allergies Allergy/AdvReac Type Severity Reaction Status Date / Time bacitracin (From Neosporin Allergy Intermediate Verified 03/10/23 09:53 ([id number])) doxycycline Allergy Intermediate Verified 03/10/23 09:47 neomycin (From Neosporin Allergy Intermediate Verified 03/10/23 09:53 ([id number])) polymyxin B (From Neosporin Allergy Intermediate Verified 03/10/23 09:53 ([id number])) sulfamethoxazole (From Allergy Intermediate Verified 03/10/23 09:53 Bactrim) trimethoprim (From Bactrim) Allergy Intermediate Verified 03/10/23 09:53 donepezil Allergy Unknown Verified 03/10/23 09:52 flurandrenolide (From Allergy Unknown Verified 03/10/23 09:53 Cordran) Iodinated Contrast Media Allergy Unknown Verified 03/10/23 09:52 Penicillins Allergy Unknown Verified 03/10/23 09:52 Sulfa (Sulfonamide Allergy Unknown Verified 03/10/23 09:52 Antibiotics) aspirin Allergy Verified 03/10/23 09:47 grass pollen Allergy itching Verified 03/10/23 09:47 house dust mite Allergy itching Verified 03/10/23 09:47 metformin Allergy Verified 03/10/23 09:47 Exam Constitutional Documenting provider has reviewed patient's vital signs: yes Common normals: no apparent distress, oriented x3, healthy appearing, alert and well nourished General appearance: cooperative [facility] Common normals: normocephalic, hearing grossly normal bilaterally and moist oral mucous membranes Head and scalp: normocephalic Eye Common normals: PERRL Pupil: PERRL Neck & C-Spine Common normals: full ROM General: normal visual inspection Cervical spine: cervical ROM abnormal and pain with cervical ROM Other: decreased sensation in RUE following C4,5,6,7 dermatomal pattern. strength 4/5 in RUE 5/5 in LUE Chest Common normals: inspection of chest normal Respiratory Common normals: normal respiratory effort, no retractions and no use of accessory muscles Back & Pelvis Lumbar spine/lower back: ROM limited, pain with ROM and straight leg raise negative bilaterally Sacroiliac joints: SI joint(s) abnormal SI joint details: tender to palpation and pain elicited by compression of iliac crest maneuver Extremity Common normals: normal to inspection and full ROM Right upper extremity: shoulder joint Left upper extremity: shoulder joint Other: bilateral numbness and tingling to first four digits, negative phalens and finklestein test. intermittent numbness and weakness to bialteral hands. pain and limited ROM in bilateral shoulders, positive empty can test, posterior lift off Neuro Common normals: oriented x3, CN's II-XII intact bilaterally, moves all extr emities, no focal motor deficits, no sensory deficits noted and deep tendon reflexes 2+ bilaterally Sensorium/orientation: alert Motor exam: strength 5/5 throughout and no movement abnormalities noted Psych Common normals: mental status grossly normal, thought process normal, cooperative, affect normal, speech normal and activity/motor behavior normal Speech: normal speech Thought process: normal thought process Results Additional Findings Additional findings: If on a controlled substance or opioids, I have checked an [place] report on this patient and there are no aberrancies noted in the prescribing history.??If on a controlled substance or opioid a drug screen was completed and reviewed within the last year, and if there has not been a drug screen completed we ordered one today to monitor higher risk, state monitored pain medication use. As part of providing excellent, safe, comprehensive care, the following was completed at our patient's visit: 1. A medication reconciliation and review to ensure accurate knowledge of current/active medications, including asking our patients to inform us about any tdtb-acq-ddfoown medications or herbal remedies/nutritional supplements/alternative remedies. 2. A review to specifically ensure our patients have had annual screening for screening for depression, screening for tobacco use, and screening for unhealthy alcohol use. For concerning screenings had a discussion with the patient, provided patient education, and recommended follow-up with primary care provider when appropriate. If patient noted with a risk of falling, they received education on strength, gait, and balance training to prevent future risk of falling. Assessment and Plan Assessment and Plan (1) Cervical radiculopathy: (2) Cervical spondylosis: (3) Cervical spinal stenosis: (4) Chronic prescription opiate use: Assessment and Plan: I feel these medications are improving the patient's quality of life and allow them to tolerate activities of daily living as well as participate in recreational activity.? The patient does not report intolerable side effects. The patient is NOT opioid naive and non-pharmacologic and non-opioid treatment has failed to significantly relieve the patient's pain and improve functi onality. The patient has a diagnosis that is related to a somatic or visceral pain etiology. ? ?? I reviewed with the patient the potential risks and side effects with the use of? opioid medications including but not limited to respiratory depression,? sedation, and even . I verified the patient has access to naloxone should? these effects occur. I advised the patient to avoid the use of any other? sedation substances including alcohol, THC, and benzodiazepines while? taking opioid medications due to the risk of compounding side effects and? detrimental outcomes. I reviewed the C[employer]IED [employer]OVE[employer] ENGINEER, pain treatment agreement, urine? drug screen, and opioid start talking forms. The patient was advised to let? their family know they had Naloxone in case they would need to administer? the medication.? ?? A drug screen was completed within the last year, and no aberrancies were noted regarding their use of controlled substances. The patient understands they are subject to the terms and conditions of the pain contract that they have signed. ? ?? I have checked an [place] report on this patient today and there are no aberrancies noted in the prescribing history.? (5) Chronic pain syndrome: (6) Lumbar spondylosis: (7) Bilateral shoulder pain: Plan continue current medications, finding benefit from norco 7.5mg TID PRN moderate to severe pain continue HEP as tolerated f/u 3 months for medication management
== END 2024-07-26 09:14 ==
LOC: PM 09:13
PROVIDERS: Visit Provider Nurse Practitioner
DX: M54.12 Radiculopathy, cervical region (principal); M47.812 Spondylosis without myelopathy or radiculopathy, cervical region; M48.02 Spinal stenosis, cervical region; Z79.891 Long term (current) use of opiate analgesic; G89.4 Chronic pain syndrome; M47.816 Spondylosis without myelopathy or radiculopathy, lumbar region; M25.511 Pain in right shoulder; M25.512 Pain in left shoulder
CPT/HCPCS: G0463

== ENCOUNTER 2024-11-14 09:14 | Outpatient (OUT) | payer MEDICARE, MEDICAID, SELFPAY ==
--- NOTE | 2024-11-14 09:54 | P.CN_ITS ---
Consult Note: HPI Data of Consult Patient: known to practice within the last 3 years Requesting Physician: Xochitl Mcmanus NP Primary Care Provider: Non-Staff Physician, Consult Narrative Reason for consult: f/u Narrative: Amelie Saenz a 74 year old female presents for evaluation and management of chronic pain, neck pain, bilateral shoulder, knees, low back 6/10 sharp. Pain increasing with twisting, pushing, pulling, reaching, activity. Longstanding neck pain secondary to cervical stenosis, cervical spondylosis and DDD. Has declined to see NS for further care and evaluation. failed >6 weeks of provider guided HEP, heat, ice, tylenol and cannot take NSAIDs due to CKD. LUAN 44%. Pt reports frequent falls, x2 in the last month and at least 3 falls in 3 months. utilizes tylenol and norco 7.5-325mg TID PRN moderate to severe pain. continues to see orthopedics for chronic right shoulder and SIJ pain, hx of right bicep tear. cc:: CC: Xochitl Mcmanus NP Review of Systems ROS Status of ROS 10 or more systems reviewed and unremark able except as noted in history and below Musculoskeletal Reports: back pain, neck pain, extremity pain and joint pain Meds Home Medications and Allergies Home Medications ?Medication ?Instructions ?Recorded ?Confirmed ?Type ZEMPEP 10,000 units PO TID 03/10/23 03/10/23 History allopurinol 100 mg tablet 100 mg PO DAILY 03/10/23 03/10/23 History ascorbic acid (vitamin C) 500 mg 500 mg PO .QD 03/10/23 03/10/23 History capsule calcitriol 0.5 mcg capsule 0.5 mcg PO BID 03/10/23 03/10/23 History cholecalciferol (vitamin D3) 1,250 50,000 unit PO .5 DAYS/WEEK 03/10/23 03/10/23 History mcg (50,000 unit) capsule diphenhydramine HCl 25 mg capsule 25 mg PO TID 03/10/23 03/10/23 History (Benadryl) dupilumab 300 mg/2 mL subcutaneous 300 mg subcut QWEEK 03/10/23 03/10/23 History pen injector (Dupixent) esomeprazole magnesium 40 mg 40 mg PO DAILY 03/10/23 03/10/23 History capsule,delayed release (Nexium) glimepiride 2 mg tablet (Amaryl) 2 mg PO BID 03/10/23 03/10/23 History levothyroxine 175 mcg tablet 175 mcg PO DAILY 03/10/23 03/10/23 History (Synthroid) xnoxgi-[id number]-[id number] 1 cap PO DAILY 03/10/23 03/10/23 History 36,000-114,000-180,000 unit capsule,delay rel (Creon) loperamide 2 mg capsule 2 mg PO QID PRN loose stool 03/10/23 03/10/23 History mecobalamin (vitamin B12) 500 mcg 500 mcg PO DAILY 03/10/23 03/10/23 History chewable tablet memantine 5 mg tablet (Namenda) 5 mg PO DAILY 03/10/23 03/10/23 History multivitamin 1 tab PO DAILY 03/10/23 03/10/23 History potassium bicarbonate-citric acid 25 meq PO BID 03/10/23 03/10/23 History 25 mEq effervescent tablet (Effer-K) potassium chloride 20 mEq 20 meq PO DAILY 03/10/23 03/10/23 History tablet,extended release(part/cryst) sodium bicarbonate 325 mg tablet 325 mg PO DAILY 03/10/23 03/10/23 History sucralfate 1 gram tablet 1 g PO BID 03/10/23 03/10/23 History upadacitinib 15 mg tablet,extended 15 mg PO DAILY 03/10/23 03/10/23 History release 24 hr (Rinvoq) vitamin A 2,400 mcg capsule 40,000 unit PO DAILY 03/10/23 03/10/23 History vitamin B complex (B 1 tab PO DAILY 03/10/23 03/10/23 History Complex-Vitamin B12 tablet) zinc sulfate 50 mg zinc (220 mg) 50 mg PO DAILY 03/10/23 03/10/23 History tablet hydrocodone 7.5 mg-acetaminophen 1 tab PO TID PRN pain #90 tabs 12/05/23 Rx 325 mg tablet hydrocodone 7.5 mg-acetaminophen 1 tab PO TID PRN pain #90 tabs 02/02/24 Rx 325 mg tablet hydrocodone 7.5 mg-acetaminophen 1 tab PO TID PRN pain #90 tabs 02/29/24 Rx 325 mg tablet hydrocodone 7.5 mg-acetaminophen 1 tab PO TID PRN pain #90 tabs 04/02/24 Rx 325 mg tablet hydrocodone 7.5 mg-acetaminophen 1 tab PO TID PRN pain #90 tabs 05/09/24 Rx 325 mg tablet hydrocodone 7.5 mg-acetaminophen 1 tab PO TID PRN pain #90 tabs 05/29/24 Rx 325 mg tablet hydrocodone 7.5 mg-acetaminophen 1 tab PO TID PRN pain #90 tabs 07/03/24 Rx 325 mg tablet hydrocodone 7.5 mg-acetaminophen 1 tab PO TID PRN pain #90 tabs 08/01/24 Rx 325 mg tablet naloxone 4 mg/actuation nasal 4 mg intranasal Q2M PRN opioid 08/01/24 Rx spray (Narcan) overdose #2 ea hydrocodone 7.5 mg-acetaminophen 1 tab PO TID PRN pain #90 tabs 09/03/24 Rx 325 mg tablet hydrocodone 7.5 mg-acetaminophen 1 tab PO TID PRN pain #90 tabs 09/27/24 Rx 325 mg tablet hydrocodone 7.5 mg-acetaminophen 1 tab PO TID PRN pain #90 tabs 10/29/24 Rx 325 mg tablet Allergies Allergy/AdvReac Type Severity Reaction Status Date / Time bacitracin (From Neosporin Allergy Intermediate Verified 03/10/23 09:53 ([id number])) doxycycline Allergy Intermediate Verified 03/10/23 09:47 neomycin (From Neosporin Allergy Intermediate Verified 03/10/23 09:53 ([id number])) polymyxin B (From Neosporin Allergy Intermediate Verified 03/10/23 09:53 ([id number])) sulfamethoxazole (From Allergy Intermediate Verified 03/10/23 09:53 Bactrim) trimethoprim (From Bactrim) Allergy Intermediate Verified 03/10/23 09:53 donepezil Allergy Unknown Verified 03/10/23 09:52 flurandrenolide (From Allergy Unknown Verified 03/10/23 09:53 Cordran) Iodinated Contrast Media Allergy Unknown Verified 03/10/23 09:52 Penicillins Allergy Unknown Verified 03/10/23 09:52 Sulfa (Sulfonamide Allergy Unknown Verified 03/10/23 09:52 Antibiotics) aspirin Allergy Verified 03/10/23 09:47 grass pollen Allergy itching Verified 03/10/23 09:47 house dust mite Allergy itching Verified 03/10/23 09:47 metformin Allergy Verified 03/10/23 09:47 Exam Constitutional Documenting provider has reviewed patient's vital signs: yes Common normals: no apparent distress, oriented x3, healthy appearing, alert and well nourished General appearance: cooperative HENAR Common normals: normocephalic, hearing grossly normal bilaterally and moist oral mucous membranes Head and scalp: normocephalic Eye Common normals: PERRL Pupil: PERRL Neck & C-Spine Common normals: full ROM General: normal visual inspection Cervical spine: cervical ROM abnormal and pain with cervical ROM Other: decreased sensation bilateral C4,5,6 strength 4/5 in BUE positive facet loading Chest Common normals: inspection of chest normal Respiratory Common normals: normal respiratory effort, no retractions and no use of accessory muscles Back & Pelvis Lumbar spine/lower back: ROM limited, pain with ROM and straight leg raise negative bilaterally Sacroiliac joints: SI joint(s) abnormal SI joint details: tender to palpation and pain elicited by compression of iliac crest maneuver Extremity Common normals: normal to inspection and full ROM Right upper extremity: shoulder joint Left upper extremity: shoulder joint Other: bilateral numbness and tingling to first four digits, negative phalens and finklestein test. intermittent numbness and weakness to bialteral hands. pain and limited ROM in bilateral shoulders, positive empty can test, posterior lift off Neuro Common normals: oriented x3, CN's II-XII intact bilaterally, moves all extremities, no focal motor deficits, no sensory deficits noted and deep tendon reflexes 2+ bilaterally Sensorium/orientation: alert Motor exam: no movement abnormalities noted Psych Common normals: mental status grossly normal, thought process normal, cooperative, affect normal, speech normal and activity/motor behavior normal Speech: normal speech Thought process: normal thought process Results Additional Findings Additional findings: If on a controlled substance or opioids, I have checked an [place] report on this patient and there are no aberrancies noted in the prescribing history.??If on a controlled substance or opioid a drug screen was completed and reviewed within the last year, and if there has not been a drug screen completed we ordered one today to monitor higher risk, state monitored pain medication use. As part of providing excellent, safe, comprehensive care, the following was completed at our patient's visit: 1. A medication reconciliation and review to ensure accurate knowledge of current/active medications, including asking our patients to inform us about any [id number] medications or herbal remedies/nutritional supplements/alternative remedies. 2. A review to specifically ensure our patients have had annual screening for screening for depression, screening for tobacco use, and screening for unhealthy alcohol use. For concerning screenings had a discussion with the patient, provided patient education, and recommended follow-up with primary care provider when appropriate. If patient noted with a risk of falling, they received education on strength, gait, and balance training to prevent future risk of falling. Portions of this note may have been carried over from the previous visit and updated as appropriate. Please note this office utilizes paper charting in addition to the electronic medical record. A list of current medications, vitals, and PMH is available there as the clinical staff outside of myself do not have access to [employer] charting during the clinic day operations. As part of providing quality comprehensive care the current medications, vitals, and PMH were reviewed in the paper chart. Assessment and Plan Assessment and Plan (1) Cervical radiculopathy: (2) Cervical spondylosis: (3) Cervical spinal stenosis: (4) Chronic prescription opiate use: Assessment and Plan: I feel these medications are improving the patient's quality of life and allow them to tolerate activities of daily living as well as participate in recreational activity.? The patient does not report intolerable side effects. The patient is NOT opioid naive and non-pharmacologic and non-opioid treatment has failed to significantly relieve the patient's pain and improve functionality. The patient has a diagnosis that is related to a somatic or visceral pain etiology. ? ?? I reviewed with the patient the potential risks and side effects with the use of? opioid medications including but not limited to respiratory depression,? sedation, and even . I verified the patient has access to naloxone should? these effects occur. I advised the patient to avoid the use of any other? sedation substances including alcohol, THC, and benzodiazepines while? taking opioid medications due to the risk of compounding side effects and? detrimental outcomes. I reviewed the SE[employer]MENT [employer], pain treatment agreement, urine? drug screen, and opioid start talking forms. The patient was advised to let? their family know they had Naloxone in case they would need to administer? the medication.? ?? A drug screen was completed within the last year, and no aberrancies were noted regarding their use of controlled substances. The patient understands they are subject to the terms and conditions of the pain contract that they have signed. ? ?? I have checked an [place] report on this patient today and there are no aberrancies noted in the prescribing history.? (5) Chronic pain syndrome: (6) Lumbar spondylosis: (7) Frequent falls: Plan bilateral c4-5 TFESI under fluoroscopy declining NS consultation for cervical stenosis and radiculopathy continue current medications, finding benefit from norco 7.5mg TID PRN moderate to severe pain continue HEP as tolerated PT for frequent falls, pt to f/u with PCP for further care f/u 2 weeks after TFESI
== END 2024-11-14 09:15 | disposition home or self-care (01) ==
LOC: PM 09:14
PROVIDERS: Visit Provider Nurse Practitioner
DX: M54.12 Radiculopathy, cervical region (principal); M47.812 Spondylosis without myelopathy or radiculopathy, cervical region; M48.02 Spinal stenosis, cervical region; Z79.891 Long term (current) use of opiate analgesic; G89.4 Chronic pain syndrome; M47.816 Spondylosis without myelopathy or radiculopathy, lumbar region; R26.89 Other abnormalities of gait and mobility
CPT/HCPCS: G0463